=== PATIENT | male | born 1985 | race American Indian/Alaskan Native ===

== ENCOUNTER 2021-11-24 09:57 | Emergency (ER) | payer OTHER, MEDICAID ==
[2021-11-24] MEDS ORDERED: Ondansetron 4 MG/2 ML SDV IVPUSH ONE (12:56)
[2021-11-24] MEDS ORDERED: LORazepam 2 MG/ML SDV IVPUSH ONE ×3 (12:56→22:13)
[2021-11-24] MEDS ORDERED: LORazepam 2 MG/ML SDV IM ONE (13:29)
[2021-11-24] MEDS ORDERED: Ondansetron 4 MG Tab.DIS PO ONE (13:29)
[2021-11-24 13:56] LABS: ACETAMINOPHEN <2.0 ug/mL; BLOOD UREA NITROGEN,BUN 7 mg/dL (7.0-18.0); CARBON DIOXIDE,CO2 23.6 mmol/L (21.0-32.0); CHLORIDE,CL 97 mmol/L (98-107); GLUCOSE RANDOM 128 mg/dL (74-106); POTASSIUM,K 4.5 mmol/L (3.5-5.1); SODIUM,NA 134 mmol/L (136-148)
[2021-11-24] MEDS ORDERED: MVI, Adult with Vitamin K 10 ML, Thiamine 100 MG, Folic Acid 1 MG in Sodium Chloride 0.... IV ONE ×4 (14:18)
[2021-11-24] MEDS ORDERED: Thiamine 200 MG/2 ML MDV IVPUSH ONE (14:35)
[2021-11-24] MEDS ORDERED: Sodium Chloride 0.9% 1,000 ML IV ONE ×2 (14:53→17:11)
[2021-11-24] MEDS ORDERED: Folic Acid 50 MG/10 ML MDV IV ONE (15:15)
[2021-11-24] MEDS ORDERED: Nicotine 21 MG/24 Hr Patch ONE (22:19)
[2021-11-24] MEDS ORDERED: Nicotine 21 MG/24 Hr Patch TRDERM ONE (22:19)
[2021-11-25] MEDS ORDERED: Folic Acid 50 MG/10 ML MDV IV ONE (14:40)
== END 2021-11-24 22:15 ==
LOC: MW.ED 09:57
DX: F23 Brief psychotic disorder (principal); M87.9 Osteonecrosis, unspecified; E87.2 Acidosis; D75.839 Thrombocytosis, unspecified; D72.829 Elevated white blood cell count, unspecified; Z20.822 Contact with and (suspected) exposure to COVID-19
CPT/HCPCS: 36415; 70450; 73502; 80053; 80143; 80179; 80305; 80307; 81001; 82140; 83540; 83605; 83735; 84443; 85025; 85610; 87635; 93005; 96372; 96374; 96375; 96376; 99285; A9270; J2060; J3411; J7030; 93010; U0002

== ENCOUNTER 2022-06-23 17:24 | Emergency (ER) | payer OTHER, MEDICAID ==
[2022-06-23] MEDS ORDERED: Sodium Chloride 0.9% 10 ML Syringe FLUSH PRN (22:41)
[2022-06-23] MEDS ORDERED: Sodium Chloride 0.9% 2.5 ML Syringe FLUSH PRN (22:41)
[2022-06-23] MEDS ORDERED: chlordiazePOXIDE 25 MG Cap PO ONE (22:45)
[2022-06-23] MEDS: Sodium Chloride 0.9% 1,000 ML IV ONE (23:07)
[2022-06-23] MEDS ORDERED: Ondansetron 4 MG/2 ML SDV ONE (23:09)
[2022-06-23] MEDS ORDERED: Ondansetron 4 MG Tab ONE (23:25)
[2022-06-23] MEDS ORDERED: Ondansetron 4 MG Tab.DIS PO STA (23:26)
[2022-06-23 23:51] LABS: ACETAMINOPHEN <2.0 ug/mL; BLOOD UREA NITROGEN,BUN 6 mg/dL (7.0-18.0); CARBON DIOXIDE,CO2 26.1 mmol/L (21.0-32.0); CHLORIDE,CL 96 mmol/L (98-107); GLUCOSE RANDOM 128 mg/dL (74-106); POTASSIUM,K 5.3 mmol/L (3.5-5.1); SODIUM,NA 135 mmol/L (136-148)
[2022-06-23 23:52] LABS: ESTIMATED GFR 98 mL/min (>60)
[2022-06-24] MEDS: Sodium Chloride 0.9% 1,000 ML IV ONE (00:25)
[2022-06-24] MEDS ORDERED: Sodium Chloride 0.9% 1,000 ML IV ONE (02:27)
[2022-06-24] MEDS ORDERED: Iopamidol 755 MG/ML 500 ML Multipack Bottle IVPUSH ONE (02:35)
[2022-06-24] MEDS ORDERED: Sodium Chloride 0.9% 500 ML IV SCH (04:45)
[2022-06-24] MEDS ORDERED: Ondansetron 4 MG/2 ML SDV IVPUSH ONE (05:27)
[2022-06-24] MEDS ORDERED: Ondansetron 4 MG/2 ML SDV ONE (05:27)
[2022-06-24] MEDS ORDERED: Diazepam 5 MG Tab PO ONE (08:27)
== END 2022-06-24 09:00 | disposition home or self-care (01) ==
LOC: MW.ED 17:24
DX: F10.239 Alcohol dependence with withdrawal, unspecified (principal); Z20.822 Contact with and (suspected) exposure to COVID-19
CPT/HCPCS: 36415; 71045; 74177; 80053; 80143; 80179; 80305; 80307; 81001; 83605; 83690; 84439; 84443; 84484; 85025; 86140; 87635; 93005; 96361; 96374; 99285; A9270; J2405; J3490; J7030; J7040; Q9967; U0002